=== PATIENT | female | born 1965 | race Caucasian/White ===

== ENCOUNTER 2019-01-10 12:35 | Emergency (ER) | payer SELFPAY ==
[~2019-01-10] VITALS: Ht 157.5 cm; Wt 66.8 kg
[~2019-01-10 12:35] MED LIST: BACTDS PO; CEPH-443 PO; HYDR-3498 PO; IBUP-1542 PO
[2019-01-10 12:42] VITALS: BP 165/83; PULSE 77; RESP 20; Ht 157.5 cm; Wt 66.8 kg
--- NOTE | 2019-01-10 14:03 | ERD ---
ER Documentation Chief Complaint Chief Complaint Pt. wants check, her belly is growing, LMP 09/30/18 HPI 53-year-old female presents with complaint of growing abdomen and lack of pe riods since September. Patient states that she wants a test. Patient also states that she has been experiencing very mild intermittent discomfort in her abdominal area which does not have any exacerbating or alleviating factors. Denies any nausea, vomiting, diarrhea, dysuria, hematuria, flank pain, fevers, migration of pain, anorexia, constipation. ROS All systems reviewed and are negative except as per history of present illness. Medications Home Meds Active Scripts Ibuprofen* (Motrin*) 600 Mg Tab, 600 MG PO Q6H PRN for PAIN AND OR ELEVATED TEMP, #30 TAB Prov:NALLELY MYERS [employer] 11/03/15 Hydrocodone Bit-Acetaminophen* ([place]*) 5-325 Mg Tab, 1 TAB PO Q6 PRN for PAIN, #20 TAB Prov:NALLELY MYERS [employer] 11/03/15 Cephalexin* (Keflex*) 500 Mg Capsule, 500 MG PO QID for 10 Days, CAP Prov:YUVAL MICHELLE-C 11/01/15 Sulfamethoxazole-Trimethoprim* (Bactrim* DS) 800-160 Mg Tab, 1 TAB PO BID for 7 Days, TAB Prov:YUVAL MICHELLE-C 11/01/15 Allergies Allergies: Coded Allergies: No Known Allergy (Verified , 01/10/19) PMhx/Soc History of Surgery: No Anesthesia Reaction: No Hx Neurological Disorder: No Hx Respiratory Disorders: No Hx Cardiac Disorders: No Hx Psychiatric Problems: No Hx Miscellaneous Medical Probl: No Hx Alcohol Use: No Hx Substance Use: No Hx Tobacco Use: No Smoking Status: Never smoker FmHx Family History: No diabetes, No coronary disease, No other Physical Exam Vitals Vital Signs Date Temp Pulse Resp B/P (MAP) Pulse Ox O2 O2 Flow FiO2 Time Delivery Rate 01/10/19 98.2 77 20 165/83 97 12:42 (110) Physical Exam Const: No acute distress Head: Atraumatic Eyes: Normal Conjunctiva ENT: Normal External Ears, Nose and Mouth. Neck: Full range of motion. No meningismus. Resp: Clear to auscultation bilaterally Cardio: Regular rate and rhythm, no murmurs Abd: Soft, non tender, non distended. Normal bowel sounds. No McBurney's tenderness. Patient able to jump up and down on exam. Skin: No petechiae or rashes Back: No midline or flank tenderness Ext: No cyanosis, or edema Neur: Awake and alert Psych: Normal Mood and Affect Procedures/MDM Urine test was negative. Urine dip was within normal limits. I advised patient that she is probably postmenopausal and she should follow-up with her [facility]. Patient's intermittent mild stomach pain is possibly due to gastritis. Patient was given educational materials regarding ways to reduce gastritis symptoms. I will suspicion for appendicitis, pyelonephritis, acute abdomen, cholecystitis, cholelithiasis, nephrolithiasis, bowel obstruction, or any other emergent condition. Patient discharged with strict ER precautions. Patient advised to follow up with PMD. All questions answered at discharge. Departure Diagnosis: Primary Impression: Menopause Condition: Stable ALIYAH MCKEON Jan 10, 2019 14:03
== END 2019-01-10 14:33 | disposition home or self-care (01) ==
LOC: FTE 12:35
DX: Z78.0 Asymptomatic menopausal state (principal); Z32.02 Encounter for pregnancy test, result negative
CPT/HCPCS: 81003; 81025; 99282